=== PATIENT | male | born 1965 | race Caucasian/White ===

== ENCOUNTER 2016-08-16 02:36 | Emergency (ER) | payer BC ==
[~2016-08-16] VITALS: Ht 188 cm; Wt 106.6 kg
[~2016-08-16 02:36] MED LIST: LRT5 PO; OXYC1TAB3 PO
[2016-08-16 02:41] VITALS: TEMP 36.5; Ht 188 cm; Wt 106.6 kg
[2016-08-16] MEDS ORDERED: NITROGLYCERIN 0.4 MG SL PER TAB CHARGE SL STA (02:56)
[2016-08-16 03:02] VITALS: O2SAT 97
[2016-08-16 03:18] LABS: BASO % 0.5 %; BASO ABS # 0.03 K/uL (0-0.2); COMPLETE YES; EOS % 2.3 %; HEMATOCRIT 43.6 % (42-52); IG% 0.2 %; LYMPH % 33.2 %; LYMPH ABS # 1.86 K/uL (1.2-3.4); MEAN CELL VOLUME 88.6 fL (80-100); MEAN CORPUSCULAR HEMOGLOBIN 30.3 pg (25-34); MEAN CORPUSCULAR HGB CONC 34.2 g/dl (32-36); MONO % 12.5 %; NEUT % 51.3 %; PLATELET COUNT 250 K/uL (130-400); RED BLOOD COUNT 4.92 M/uL (4.7-6.1); WHITE BLOOD COUNT 5.61 K/uL (4.8-10.8)
[2016-08-16 03:35] LABS: BLOOD UREA NITROGEN 13 mg/dl (7-18); BUN/CREATININE RATIO 10.6 (10-20); CALCIUM 8.4 mg/dl (8.5-10.1); CARBON DIOXIDE 31 mmol/L (21-32); CHLORIDE 106 mmol/L (98-107); GLUCOSE 93 mg/dl (70-99); POTASSIUM 3.8 mmol/L (3.5-5.1); SODIUM 143 mmol/L (136-145)
[2016-08-16 03:40] LABS: CKMB/CK RATIO 1.2 (0-3.0)
[2016-08-16] MEDS ORDERED: METOPROLOL TARTRATE 50 MG TAB PO STA (04:05)
[2016-08-16] MEDS ORDERED: METO25TA56 PO (04:57)
--- NOTE | 2016-08-16 04:58 | EMERGENCY ROOM VISIT NOTE ---
History Report prepared by Isabel: Brittni Levi Under the Supervision of: Dr. Huy Farmer M.D. First contact with patient: 02:49 Chief Complaint: HYPERTENSION Stated Complaint: HIGH BP/CHEST PAIN History of Present Illness The patient is a 51 year old male who presents to the Emergency Room with complaints of intermittent chest pain with onset one week ago. He rates his pain as a 4/10 and describes the pain as a "pressure" in his central chest. The patient notes that he also has high blood pressure with this chest discomfort. For the symptoms, the patient took two baby aspirin one night ago. Along with his chest pain, the patient is also congested and has a cough. The patient has a significant history of cardiac disease. He denies taking daily medication, headaches, new neck pain, jaw pain, shortness of breath, falls, trauma, history of blood clots, family history of blood clots, recent travel. Source of History: patient Onset: one week ago Position: chest Quality: other (chest pressure) Timing: intermittent Modifying Factors (Relieving): other (aspirin) Associated Symptoms: + cough, No SOB, No headache, No neck pain Note: He denies jaw pain, falls, trauma. Review of Systems See HPI for pertinent positives & negatives. A total of 10 systems reviewed and were otherwise negative. Past Medical & Surgical Medical Problems: (1) Kidney stone Family History FHx: heart disease Hypertension Social History Smoking Status: Never Smoker Drug Use: none Marital Status: Housing Status: lives with family Current/Historical Medications Scheduled Metoprolol Tartrate (Lopressor) (Lopressor), 1 TAB PO BID Allergies Uncoded Allergies: DUST MITES (Allergy, Unknown, 08/31/02) Physical Exam Vital Signs Date Time Temp Pulse Resp B/P Pulse Ox O2 Delivery O2 Flow Rate FiO2 08/16/16 05:31 70 18 177/98 97 08/16/16 05:01 68 18 158/107 97 Room Air 08/16/16 04:14 73 18 176/98 97 Room Air 08/16/16 03:41 73 18 166/100 97 Room Air 08/16/16 03:14 83 18 156/102 97 Room Air 08/16/16 03:03 79 08/16/16 03:02 97 Room Air 08/16/16 03:02 76 18 175/102 97 Room Air 08/16/16 02:41 36.5 83 18 180/110 98 Room Air Physical Exam GENERAL: Patient is mildly anxious appearing and in no acute distress. HEENT: No acute trauma, normocephalic atraumatic, mucous membranes moist, no nasal congestion, no scleral icterus. NECK: No stridor, no adenopathy, no meningismus, trachea is midline. LUNGS: No dyspnea. Clear to auscultation and equal bilaterally. No wheeze, no rhonchi. HEART: Regular rate and rhythm. No murmurs, rubs, gallops appreciated. ABDOMEN: Soft, nontender, bowel sounds positive, no masses appreciated, no peritonitis. BACK: No midline tenderness, no CVA tenderness EXTREMITIES: Normal motion all extremities, no cyanosis, no edema. NEUROLOGIC: Alert and oriented, no acute motor or sensory deficits, no focal weakness, cranial nerves grossly intact. SKIN: No rash, no jaundice, no diaphoresis. Medical Decision & Procedures ER Provider Diagnostic Interpretation: X ray results are stated below per my interpretation: Chest: 1 view: No infiltrate, no effusion, normal cardiac border. Laboratory Results 08/16/16 03:00 Red Blood Count 4.92, Mean Corpuscular Volume 88.6, Mean Corpuscular Hemoglobin 30.3, Mean Corpuscular Hemoglobin Concent 34.2, Mean Platelet Volume 10.0, Neutrophils (%) (Auto) 51.3, Lymphocytes (%) (Auto) 33.2, Monocytes (%) (Auto) 12.5, Eosinophils (%) (Auto) 2.3, Basophils (%) (Auto) 0.5, Neutrophils # (Auto ) 2.88, Lymphocytes # (Auto) 1.86, Monocytes # (Auto) 0.70, Eosinophils # (Auto ) 0.13, Basophils # (Auto) 0.03 08/16/16 03:00 Test 08/16/16 03:00 08/16/16 04:57 White Blood Count 5.61 K/uL (4.8-10.8) Red Blood Count 4.92 M/uL (4.7-6.1) Hemoglobin 14.9 g/dL (14.0-18.0) Hematocrit 43.6 % (42-52) Mean Corpuscular Volume 88.6 fL (80-100) Mean Corpuscular Hemoglobin 30.3 pg (25-34) Mean Corpuscular Hemoglobin Concent 34.2 g/dl (32-36) Platelet Count 250 K/uL (130-400) Mean Platelet Volume 10.0 fL (7.4-10.4) Neutrophils (%) (Auto) 51.3 % Lymphocytes (%) (Auto) 33.2 % Monocytes (%) (Auto) 12.5 % Eosinophils (%) (Auto) 2.3 % Basophils (%) (Auto) 0.5 % Neutrophils # (Auto) 2.88 K/uL (1.4-6.5) Lymphocytes # (Auto) 1.86 K/uL (1.2-3.4) Monocytes # (Auto) 0.70 K/uL (0.11-0.59) Eosinophils # (Auto) 0.13 K/uL (0-0.5) Basophils # (Auto) 0.03 K/uL (0-0.2) RDW Standard Deviation 41.7 fL (36.4-46.3) RDW Coefficient of Variation 12.8 % (11.5-14.5) Immature Granulocyte % (Auto) 0.2 % Immature Granulocyte # (Auto) 0.01 K/uL (0.00-0.02) D-Dimer < 190 ug/L FEU (0-500) Anion Gap 6.0 mmol/L (3-11) Est Creatinine Clear Calc Drug Dose 94.7 ml/min Estimated GFR () 80.7 Estimated GFR (Non- 69.6 BUN/Creatinine Ratio 10.6 (10-20) Calcium Level 8.4 mg/dl (8.5-10.1) Total Creatine Kinase 81 U/L (39-308) Creatine Kinase MB 1.0 ng/ml (0.5-3.6) Creatine Kinase MB Ratio 1.2 (0-3.0) Troponin I < 0.015 ng/ml (0-0.045) Bedside Troponin I 0.010 ng/ml (0-0.045) Laboratory results as reviewed by me. Medications Administered Medications (Trade) Dose Ordered Sig/Katie Route Start Time Stop Time Status Last Admin Dose Admin Nitroglycerin (Nitrostat Tab) 0.4 mg PRN STAT SL 08/16/16 02:56 08/16/16 02:57 DC 1/29/17 03:08 0.4 MG Metoprolol Tartrate (Lopressor Tab) 25 mg NOW STAT PO 08/16/16 04:05 08/16/16 04:07 DC 08/16/16 04:15 25 MG ECG Indication: chest pain Rate (beats per minute): 76 Rhythm: normal sinus Findings: no acute ischemic change, no ectopy ED Course 0250: The patient was evaluated in room B9. A complete history and physical exam was performed. 0256: Nitrostat Tab 0.4 mg SL 0403: I reevaluated the patient; he is feeling fine. I discussed admission with the patient; he states that he cannot stay in the hospital as he has too much to do. 0405: Lopressor Tab 25 mg PO 0525: Reevaluated the patient. Discussed results and discharge instructions: He verbalized understanding and agreement. The patient is ready for discharge. Medical Decision Differential: Cardiac Ischemia (STEMI, NSTEMI, Unstable Angina, etc), Aortic Dissection, Arrhythmia, Pulmonary Embolism, Pneumonia, Pneumothorax, MSK, Infectious, Pericarditis/Myocarditis, Esophageal Rupture, Gastrointestinal, amongst other pathologies entertained. 51 yr old male arrives with complaint of hypertension. Admits some substernal chest discomfort which has been essentially continuous for last week without significant change other than he does not it seems worse with cough. This is in conjunction with runny nose and URI symptoms. His BP seems to be essential in nature with no previous medications for this. We will start on Metoprolol low dose as he tolerates this here in ER and will be able to take off if blood pressure normalizes with diet and exercise. EKG negative and trops are normal 2 hours apart. He has no change in symptoms with SLNTG thus I suspect chest discomfort is more MSK related. With normal CXR, normal dimer and description of pain I do not feel this is dissection nor PE. He is stable and in no distress. I made clear to him that brining in to hospital would be my advice but he notes that he needs to be discharged as busy morning ahead. He is aware risks of NE. he is aware he can return at any time. He will follow up with his PCP tomorrow to discuss further work-up and if Metoprolol or other meds should be used. Figured would go with metoprolol as HR adequate and may also have mild added benefit of helping with increased anxiety/stress recently and public speaking. Impression Primary Impression: Hypertension Additional Impression: Chest pain, mid sternal Scribe Attestation The scribe's documentation has been prepared under my direction and personally reviewed by me in its entirety. I confirm that the note above accurately reflects all work, treatment, procedures, and medical decision making performed by me. Departure Information Dispostion Home / Self-Care Prescriptions Metoprolol Tartrate (Lopressor) (Lopressor) 25 Mg Tab 1 TAB PO BID for 30 Days, #60 TAB 1 Refill Prov: Huy Farmer M.D. 08/16/16 Referrals Alf Wakefield M.D. (PCP) Patient Instructions ED Chest Pain Atypical Unkn Cause, ED Hypertension [place], [facility] Additional Instructions A single Emergency Department visit can not rule out cardiac disease. If you develop worsening pain, radiation of pain, difficulty breathing, passing out or other concerns return to ED immediately for further evaluation. You must call your primary care provider tomorrow for further evaluation. You have been started on a low dose of blood pressure medication. This can be increased with consultation with your primary care provider if need be. Please discuss using this med vs others with your primary provider. Problem Qualifiers Primary Impression: Hypertension Hypertension type: essential hypertension Qualified Codes: I10 - Essential ( primary) hypertension
[2016-08-16 05:31] VITALS: BP 177/98; PULSE 70; O2SAT 97
--- NOTE | 2016-08-16 08:07 | DIAGNOSTIC IMAGING REPORT ---
CHEST ONE VIEW PORTABLE HISTORY: Atypical Chest Pain COMPARISON: None. FINDINGS: The lungs are clear. Cardiac silhouette is normal in size. No pleural effusions. No pneumothorax. IMPRESSION: No acute process. Electronically signed by: Diego Cantu M.D. 08/16/2016 8:06 AM Dictated Date/Time: 08/16/2016 8:04 AM
[2016-12-03] MEDS ORDERED: JUICE PLUS PO (15:20)
[2016-12-03] MEDS ORDERED: PANT40TA PO (15:20)
[2016-12-04] MEDS ORDERED: HYDR-3419 PO (10:19)
== END 2016-08-16 05:32 | disposition home or self-care (01) ==
LOC: C.EDB 02:37
DX: I10 Essential (primary) hypertension (principal); R07.2 Precordial pain; Z82.49 Family history of ischemic heart disease and other diseases of the circulatory system

== ENCOUNTER 2016-10-27 08:18 | Emergency (ER) | payer BC ==
[~2016-10-27] VITALS: Ht 188 cm; Wt 99.5 kg
[~2016-10-27 08:18] MED LIST changes: -LRT5 PO; +METO25TA56 PO; -OXYC1TAB3 PO
[2016-10-27 08:22] VITALS: TEMP 36.7; Ht 188 cm; Wt 99.5 kg
[2016-10-27] MEDS ORDERED: ONDANSETRON INJ 2 MG/ML 2 ML VIAL IV STA (08:31)
[2016-10-27] MEDS ORDERED: HYDROmorphone INJ 1 MG/ML SYR IV STA (08:31)
[2016-10-27] MEDS ORDERED: LISI20TA3 PO (08:42)
[2016-10-27] MEDS ORDERED: METO25TA56 PO (08:42)
[2016-10-27 08:47] LABS: BASO % 0.1 %; BASO ABS # 0.01 K/uL (0-0.2); COMPLETE YES; EOS % 1.3 %; HEMATOCRIT 43.6 % (42-52); IG% 0.3 %; LYMPH % 32.1 %; LYMPH ABS # 2.21 K/uL (1.2-3.4); MEAN CORPUSCULAR HEMOGLOBIN 29.3 pg (25-34); MEAN CORPUSCULAR HGB CONC 33.7 g/dl (32-36); MEAN PLATELET VOLUME 9.8 fL (7.4-10.4); MONO % 8.3 %; NEUT % 57.9 %; PLATELET COUNT 287 K/uL (130-400); RED BLOOD COUNT 5.01 M/uL (4.7-6.1); WHITE BLOOD COUNT 6.89 K/uL (4.8-10.8)
[2016-10-27] MEDS ORDERED: SODIUM CHLORIDE 0.9% 1000ML 1,000 ML IV STA (08:50)
[2016-10-27 09:04] LABS: BUN/CREATININE RATIO 15.3 (10-20); CALCIUM 8.7 mg/dl (8.5-10.1); CREATININE 1.2 mg/dl (0.60-1.40); POTASSIUM 3.9 mmol/L (3.5-5.1)
--- NOTE | 2016-10-27 09:16 | DIAGNOSTIC IMAGING REPORT ---
ABDOMEN AND PELVIS CT WITHOUT CONTRAST CT DOSE: 983.40 mGycm HISTORY: Flank pain L flank pain 45 min ago TECHNIQUE: Multiaxial CT images of the abdomen and pelvis were performed without contrast. COMPARISON STUDY: None. FINDINGS: Minimal dependent bibasilar atelectasis. Several hypodensities within the liver suggesting small cysts on a statistical basis. Gallbladder is negative for distention. Spleen is uniform. The adrenal glands are unremarkable. Right kidney is negative for hydronephrosis. Mild left hydronephrosis. Obstructing calculus measuring 4 mm proximal left ureter. Distal ureters are unremarkable. Bowel pattern is considered nonobstructive. Bladder is midline. There are several prostate calcifications. IMPRESSION: 1. 4 mm obstructing calculus proximal left ureter. 2. Mild left hydroureteronephrosis. Electronically signed by: Mark Pelayo M.D. 10/27/2016 9:15 AM Dictated Date/Time: 10/27/2016 9:12 AM
[2016-10-27 09:53] LABS: URINE APPEARANCE CLOUDY (CLEAR); URINE BILIRUBIN NEG (NEG); URINE COLOR DK YELLOW; URINE NITRITE NEG (NEG); URINE SPECIFIC GRAVITY 1.024 (1.000-1.030); UROBILINOGEN NEG (NEG); ZZUR CULT IF INDIC CLEAN CATCH NO
[2016-10-27 09:58] LABS: MANUAL MICROSCOPIC REQUIRED? NO; REVIEW REQ? NO
[2016-10-27] MEDS ORDERED: OXYC1TAB3 PO (10:14)
[2016-10-27] MEDS ORDERED: TAMS0.4C38 PO (10:14)
[2016-10-27 10:15] VITALS: BP 173/104; PULSE 56; O2SAT 98
--- NOTE | 2016-10-27 14:06 | EMERGENCY ROOM VISIT NOTE ---
History Report prepared by Isabel: Giovanna Mueller Under the Supervision of: Dr. Boyd Haney D.O. First contact with patient: 08:24 Chief Complaint: FLANK PAIN Stated Complaint: LEFT SIDE PAIN/KIDNEY STONE History of Present Illness The patient is a 51 year old male who presents to the Emergency Room with complaints of persistent left sided flank pain starting 45 minutes ago. The patient has had 4 kidney stones before and states that the current symptoms are similar to his previous kidney stones. He describes the pain as severe and sharp. Initially started in his epigastric region with nausea and migrated to his left flank. The pain sometimes worsens with movement. He reports nausea. He denies any dysuria, headache, chest pain, or SOB. He follows with urology and has been on a specialized diet for the past 2 years. He has a history of hypertension. Source of History: patient Onset: 45 minutes ago Position: other (left flank) Quality: other (like previous kidney stones) Timing: other (persistent) Modifying Factors (Worsening): movement Associated Symptoms: + nausea, No SOB, No chest pain, No headache, No urinary symptoms Review of Systems See HPI for pertinent positives & negatives. A total of 10 systems reviewed and were otherwise negative. Past Medical & Surgical Medical Problems: (1) Kidney stone Family History FHx: heart disease Hypertension Social History Smoking Status: Never Smoker Drug Use: none Marital Status: Housing Status: lives with family Occupation Status: employed Current/Historical Medications Scheduled Lisinopril (Prinivil), 20 MG PO DAILY Metoprolol Tartrate (Lopressor) (Lopressor), 25 MG PO BID Tamsulosin Hcl (Flomax), 0.4 MG PO DAILY Scheduled PRN Oxycodone Immediate Rel Tab (Roxicodone Ir), 1-2 TAB PO Q4H PRN for Severe Pain Allergies Uncoded Allergies: DUST MITES (Allergy, Unknown, 08/31/02) Physical Exam Vital Signs Date Time Temp Pulse Resp B/P Pulse Ox O2 Delivery O2 Flow Rate FiO2 10/27/16 10:15 56 18 173/104 98 Room Air 10/27/16 08:22 36.7 59 18 193/108 98 Room Air Physical Exam GENERAL: sitting up in bed, in moderate distress, holding left flank EYE EXAM: normal conjunctiva OROPHARYNX: no exudate, no erythema, lips, buccal mucosa, and tongue normal and mucous membranes are moist NECK: supple, no nuchal rigidity, no adenopathy, non-tender LUNGS: Clear to auscultation. Normal chest wall mechanics HEART: no murmurs, S1 normal and S2 normal ABDOMEN: abdomen soft, non-tender, normo-active bowel sounds, no masses, no rebound or guarding. BACK: Back is symmetrical on inspection and there is no deformity, no midline tenderness, no CVA tenderness. SKIN: no rashes and no bruising UPPER EXTREMITIES: upper extremities are grossly normal. LOWER EXTREMITIES: No pitting edema. NEURO EXAM: Normal sensorium, cranial nerves II-XII grossly intact, normal speech, no gross weakness of arms, no gross weakness of legs. Medical Decision & Procedures ER Provider Diagnostic Interpretation: Radiology results as stated below per my review and the radiologist's interpretation: ABDOMEN AND PELVIS CT WITHOUT CONTRAST CT DOSE: 983.40 mGycm HISTORY: Flank pain L flank pain 45 min ago TECHNIQUE: Multiaxial CT images of the abdomen and pelvis were performed without contrast. COMPARISON STUDY: None. FINDINGS: Minimal dependent bibasilar atelectasis. Several hypodensities within the liver suggesting small cysts on a statistical basis. Gallbladder is negative for distention. Spleen is uniform. The adrenal glands are unremarkable. Right kidney is negative for hydronephrosis. Mild left hydronephrosis. Obstructing calculus measuring 4 mm proximal left ureter. Distal ureters are unremarkable. Bowel pattern is considered nonobstructive. Bladder is midline. There are several prostate calcifications. IMPRESSION: 1. 4 mm obstructing calculus proximal left ureter. 2. Mild left hydroureteronephrosis. Electronically signed by: Mark Pelayo M.D. 10/27/2016 9:15 AM Dictated Date/Time: 10/27/2016 9:12 AM Laboratory Results 10/27/16 08:40 Red Blood Count 5.01, Mean Corpuscular Volume 87.0, Mean Corpuscular Hemoglobin 29.3, Mean Corpuscular Hemoglobin Concent 33.7, Mean Platelet Volume 9.8, Neutrophils (%) (Auto) 57.9, Lymphocytes (%) (Auto) 32.1, Monocytes (%) (Auto) 8.3, Eosinophils (%) (Auto) 1.3, Basophils (%) (Auto) 0.1, Neutrophils # (Auto) 3.99, Lymphocytes # (Auto) 2.21, Monocytes # (Auto) 0.57, Eosinophils # (Auto) 0.09, Basophils # (Auto) 0.01 10/27/16 08:40 Test 10/27/16 08:40 10/27/16 09:35 White Blood Count 6.89 K/uL (4.8-10.8) Red Blood Count 5.01 M/uL (4.7-6.1) Hemoglobin 14.7 g/dL (14.0-18.0) Hematocrit 43.6 % (42-52) Mean Corpuscular Volume 87.0 fL (80-100) Mean Corpuscular Hemoglobin 29.3 pg (25-34) Mean Corpuscular Hemoglobin Concent 33.7 g/dl (32-36) Platelet Count 287 K/uL (130-400) Mean Platelet Volume 9.8 fL (7.4-10.4) Neutrophils (%) (Auto) 57.9 % Lymphocytes (%) (Auto) 32.1 % Monocytes (%) (Auto) 8.3 % Eosinophils (%) (Auto) 1.3 % Basophils (%) (Auto) 0.1 % Neutrophils # (Auto) 3.99 K/uL (1.4-6.5) Lymphocytes # (Auto) 2.21 K/uL (1.2-3.4) Monocytes # (Auto) 0.57 K/uL (0.11-0.59) Eosinophils # (Auto) 0.09 K/uL (0-0.5) Basophils # (Auto) 0.01 K/uL (0-0.2) RDW Standard Deviation 42.7 fL (36.4-46.3) RDW Coefficient of Variation 13.4 % (11.5-14.5) Immature Granulocyte % (Auto) 0.3 % Immature Granulocyte # (Auto) 0.02 K/uL (0.00-0.02) Anion Gap 6.0 mmol/L (3-11) Est Creatinine Clear Calc Drug Dose 91.8 ml/min Estimated GFR () 80.7 Estimated GFR (Non- 69.6 BUN/Creatinine Ratio 15.3 (10-20) Calcium Level 8.7 mg/dl (8.5-10.1) Total Bilirubin 0.6 mg/dl (0.2-1) Direct Bilirubin 0.1 mg/dl (0-0.2) Aspartate Amino Transf (AST/SGOT) 14 U/L (15-37) Alanine Aminotransferase (ALT/SGPT) 27 U/L (12-78) Alkaline Phosphatase 44 U/L (45-117) Total Protein 7.1 gm/dl (6.4-8.2) Albumin 3.9 gm/dl (3.4-5.0) Lipase 175 U/L (73-393) Urine Color DK YELLOW Urine Appearance CLOUDY (CLEAR) Urine pH 6.0 (4.5-7.5) Urine Specific [place] 1.024 (1.000-1.030) Urine Protein TRACE (NEG) Urine Glucose (UA) NEG (NEG) Urine Ketones TRACE (NEG) Urine Occult Blood 3+ (NEG) Urine Nitrite NEG (NEG) Urine Bilirubin NEG (NEG) Urine Urobilinogen NEG (NEG) Urine Leukocyte Esterase NEG (NEG) Urine WBC (Auto) 1-5 /hpf (0-5) Urine RBC (Auto) >30 /hpf (0-4) Urine Hyaline Casts (Auto) 1-5 /lpf (0-5) Urine Epithelial Cells (Auto) 5-10 /lpf (0-5) Urine Bacteria (Auto) NEG (NEG) Laboratory results per my review. Medications Administered Medications (Trade) Dose Ordered Sig/Katie Route Start Time Stop Time Status Last Admin Dose Admin Hydromorphone HCl (Dilaudid Inj) 1 mg NOW STAT IV 10/27/16 08:31 10/27/16 08:33 DC 10/27/16 08:48 1 MG Ondansetron HCl 4 mg 4 mg NOW STAT IV 10/27/16 08:31 10/27/16 08:33 DC 10/27/16 08:46 4 MG Sodium Chloride (Nss 1000ml) 1,000 ml @ 999 mls/hr Q1H1M STAT IV 10/27/16 08:50 10/27/16 09:50 DC 10/27/16 08:50 999 MLS/HR ED Course ED COURSE: Vital signs were reviewed and showed hypertension and bradycardia. The patients medical record was reviewed The above diagnostic studies were performed and reviewed. ED treatments and interventions as stated above. 0825: The patient was evaluated in room B7. A complete history and physical examination was performed. 0831: Zofran Inj 4 mg IV, Dilaudid Inj 1 mg IV. 0850: NSS 1000 ml @ 999 mls/hr IV. 0922: I reevaluated the patient. He is feeling better. He is producing a urine sample. 1013: Upon reevaluation, the patient is doing better. I discussed my findings with the patient and he understands and agrees with the treatment plan. Based on the patients age, coexisting illnesses, exam and lab findings the decision to treat as an outpatient was made. The patient remained stable while under my care. The patient appeared well at the time of discharge. Medical Decision Differential diagnoses includes but is not limited to gastritis, peptic ulcer disease, GERD, gallbladder disease, pancreatitis, small bowel obstruction, acute coronary syndrome, pericarditis, ischemic bowel, irritable bowel disease, irritable bowel syndrome, appendicitis, diverticulitis, malignancy, hernia, urinary tract infection, torsion, , perforation, trauma, infectious. Patient is a 51-year-old male who presents the ER for severe left flank pain that feels exactly like his previous kidney stones. He was initially hypertensive. Labs including CBC, BMP, LFTs, and lipase were unremarkable. UA has blood but no signs of infection. CT shows a 4 mm proximal stone. Patient was given IV fluids along with Dilaudid and Zofran. He had significant improvement of his pain. He was discharged instructed not drive. He is given a prescription for Flomax, a strainer, and OxyIR. Discussed with Pt concerning signs and symptoms to watch out for. Pt was instructed to follow up with their PCP and discussed with the patient their option to return to the ED at anytime for persistent or worsening symptoms. The appropriate anticipatory guidance and out-patient management, including indications for return to the emergency department, were explained at length to the patient and understood. Impression Primary Impression: Renal colic Scribe Attestation The scribe's documentation has been prepared under my direction and personally reviewed by me in its entirety. I confirm that the note above accurately reflects all work, treatment, procedures, and medical decision making performed by me. Departure Information Dispostion Home / Self-Care Prescriptions Oxycodone Immediate Rel Tab (ROXICODONE IR) 5 Mg Tab 1-2 TAB PO Q4H Y for Severe Pain, #24 TAB Prov: Boyd Haney, DO 10/27/16 Tamsulosin Hcl (FLOMAX) 0.4 Mg Cap 0.4 MG PO DAILY, #10 CAP Prov: Boyd Haney, DO 10/27/16 Referrals Alf Wakefield M.D. (PCP) Warner Ackerman M.D. Forms HOME CARE DOCUMENTATION FORM, IMPORTANT VISIT INFORMATION Patient Instructions Kidney Stones - [facility], My [facility] Additional Instructions Please follow up with your primary care doctor with in the next 24 hours. Any worsening of your symptoms, please return to the ED immediately. This includes fevers greater than 100.4, persistent nausea vomiting, worsening the pain, unable to peak, or any other concerning signs or symptoms from your standpoint. You were given medications during this visit that will inhibit your ability to drive, operate machinery and work. Please do NOT drive, operate machinery or work for the next 12hrs. You were also given a prescription for a narcotic/ OxyIR. While taking this medication you should also not drive, operate machinery and or work. Please follow up with urology within the next 1-2 weeks. Their numbers listed below.
[2016-12-03] MEDS ORDERED: PANT40TA PO (15:20)
[2016-12-03] MEDS ORDERED: JUICE PLUS PO (15:20)
[2016-12-04] MEDS ORDERED: HYDR-3419 PO (10:19)
== END 2016-10-27 10:34 | disposition home or self-care (01) ==
LOC: C.EDB 08:19
DX: N23 Unspecified renal colic (principal); Z87.442 Personal history of urinary calculi; Z82.49 Family history of ischemic heart disease and other diseases of the circulatory system; Z79.899 Other long term (current) drug therapy

== ENCOUNTER → 2016-11-02 | Outpatient (CLI) | payer BC ==
[~2016-11-02] MED LIST changes: +HYDR-3419 PO; +JUICE PLUS PO; +LISI20TA3 PO; +OXYC1TAB3 PO; +PANT40TA PO; +TAMS0.4C38 PO
--- NOTE | 2016-11-02 10:20 | DIAGNOSTIC IMAGING REPORT ---
KUB HISTORY: N20.0 [id number] COMPARISON: Abdomen and pelvis CT 10/27/2016. FINDINGS: No evidence for bowel obstruction. Moderate to large amount well-formed stool seen throughout the colon. This obscures the renal shadows. No renal calculi. No change in the 7 mm stone within the proximal left ureter. This is adjacent to the left L3 transverse process No pneumoperitoneum or pneumatosis. IMPRESSION: 1. No change in the 7 mm proximal left ureteral stone. 2. No renal calculi. Electronically signed by: Diego Cantu M.D. 11/02/2016 10:18 AM Dictated Date/Time: 11/02/2016 10:16 AM
== END ==
LOC: C.RADBC 09:54
PROVIDERS: ATTEND Nurse Practitioner Family
DX: N20.0 Calculus of kidney (principal)

== ENCOUNTER → 2016-12-02 | Outpatient (CLI) | payer BC ==
[~2016-12-02] MED LIST changes: -TAMS0.4C38 PO
--- NOTE | 2016-12-02 09:14 | DIAGNOSTIC IMAGING REPORT ---
KUB HISTORY: N20.0 [id number] Ureteral [id number] COMPARISON: KUB 11/02/2016. FINDINGS: The bowel gas pattern is unremarkable. There are no dilated loops of small bowel to suggest an obstruction. No renal calculi. No change in the 7 mm proximal left ureteral stone adjacent to the left L3 transverse process. No pneumoperitoneum or pneumatosis. Of note, the renal shadows are partially obscured by overlying bowel. IMPRESSION: No change in the 7 mm proximal left ureteral stone. Electronically signed by: Diego Cantu M.D. 12/02/2016 9:12 AM Dictated Date/Time: 12/02/2016 9:08 AM
[2016-12-02 14:53] LABS: BASO % 0.5 %; BASO ABS # 0.03 K/uL (0-0.2); COMPLETE YES; EOS % 0.6 %; IG% 0.2 %; LYMPH % 35.4 %; LYMPH ABS # 2.28 K/uL (1.2-3.4); MEAN CELL VOLUME 89.4 fL (80-100); MEAN CORPUSCULAR HEMOGLOBIN 29.7 pg (25-34); MEAN CORPUSCULAR HGB CONC 33.2 g/dl (32-36); MEAN PLATELET VOLUME 10.2 fL (7.4-10.4); MONO % 6.5 %; NEUT % 56.8 %; PLATELET COUNT 280 K/uL (130-400); RED BLOOD COUNT 4.92 M/uL (4.7-6.1); WHITE BLOOD COUNT 6.44 K/uL (4.8-10.8)
[2016-12-02 15:04] LABS: URINE APPEARANCE CLEAR (CLEAR); URINE BILIRUBIN NEG (NEG); URINE COLOR YELLOW; URINE NITRITE NEG (NEG); URINE SPECIFIC GRAVITY 1.012 (1.000-1.030); UROBILINOGEN NEG (NEG)
[2016-12-02 15:09] LABS: MANUAL MICROSCOPIC REQUIRED? NO; REVIEW REQ? NO
[2016-12-02 15:42] LABS: BLOOD UREA NITROGEN 17 mg/dl (7-18); BUN/CREATININE RATIO 15.7 (10-20); CALCIUM 8.8 mg/dl (8.5-10.1); CARBON DIOXIDE 32 mmol/L (21-32); CHLORIDE 103 mmol/L (98-107); GLUCOSE 92 mg/dl (70-99); POTASSIUM 3.8 mmol/L (3.5-5.1); SODIUM 140 mmol/L (136-145)
== END | disposition home or self-care (01) ==
LOC: C.RADBC 08:46
PROVIDERS: ATTEND Nurse Practitioner Family
DX: N20.0 Calculus of kidney (principal); N20.1 Calculus of ureter

== ENCOUNTER → 2016-12-04 | Day surgery (SDC) | payer BC ==
[2016-12-03 15:21] VITALS: Ht 188 cm; Wt 97.7 kg
[~2016-12-04] VITALS: Ht 188 cm; Wt 97.7 kg
[~2016-12-04] MED LIST changes: +ATROPINE SULFATE 0.1 MG/ML 5ML SYR IV PRN; +CIPROFLOXACIN 400MG / D5W IV SCH; +DEXAMETHASONE SOD INJ 4 MG/ML VIAL IV PRN; +DEXAMETHASONE SOD INJ 4 MG/ML VIAL ONE; +EpHEDrine SULFATE INJ 50 MG/ML AMP IV PRN; +FENTANYL CITRATE INJ 50 MCG/1 ML 2 ML VIAL IV PRN; +FENTANYL CITRATE INJ 50 MCG/1 ML 2 ML VIAL ONE; +KETOROLAC TROMETHAMINE 30 MG/ML VIAL IV. PRN; +LABETALOL HCL IV 5 MG/ML 20ML IV PRN; +LACTATED RINGER'S 1000ML 1,000 ML IV SCH; +LIDOCAINE HCL 2% 2 ML VIAL (20MG/ML) ONE; +METOCLOPRAMIDE HCL INJ 5 MG/ML 2 ML VIAL IV PRN; +MIDAZOLAM HCL 1 MG/ML 2ML VIAL ONE; +MoRPHine SULFATE 10 MG/ML CARP/VIAL IV PRN; +NURSING VERBAL MED ORDER ONE; +ONDANSETRON INJ 2 MG/ML 2 ML VIAL IV PRN; +ONDANSETRON INJ 2 MG/ML 2 ML VIAL ONE; -OXYC1TAB3 PO; +OXYCODONE/ACETAMINOPHEN 5-325 TAB PO STA; +PHENYLEPHRINE 100MCG/ML 5ML SYR IV PRN; +PROPOFOL IV EMULSION 10 MG/ML 20 ML VIAL IV ONE; +SUCCINYLCHOLINE CHLORIDE 20 MG/ML 10 ML VIAL IV ONE
--- NOTE | 2016-12-04 09:44 | History & Physical Bridge - [place] ---
H&P Re-Evaluation Bridge Note: I have examined the patient, reviewed the History & Physical and in the interval since the performance of the History & Physical I have noted the following changes of clinical significance: No changes noted
--- NOTE | 2016-12-04 10:25 | Discharge Instructions-SurgCtr ---
Discharge Instructions Date of Service December 04, 2016. Visit Reason for Visit: Stones Discharge Discharge Diagnosis / Problem: r ureteral stone Discharge Goals Goal(s): Decrease discomfort, Increase independence, Improve disease control Activity Recommendations Activity Limitations: per Instructions/Follow-up section Anesthesia . Post Anesthesia Instructions: If you have had General Anesthesia or IV Sedation: * Do not drive today. * Resume driving when surgeon permits. * Do not make important decisions or sign legal documents today. * Call surgeon for: 1. Temperature elevations greater than 101 degrees F. 2. Uncontrollable pain. 3. Excessive bleeding. 4. Persistent nausea and vomiting. 5. Medication intolerance (nausea, vomiting or rash). * For nausea and vomiting use only clear liquids such as: tea, soda, bouillon until nausea subsides, then gradually increase diet as tolerated. * If you have any concerns or questions, call your surgeon's office. If physician is unavailable and it is an emergency, call 911 or go to the nearest emergency room. . Diet Recommendations Home Diet: resume previous diet Procedures Procedures Performed: Left Extracorporeal Shock Wave Lithotripsy - Ureteral Pending Studies Studies pending at discharge: no Medical Emergencies . Who to Call and When: Medical Emergencies: If at any time you feel your situation is an emergency, please call 911 immediately. . Non-Emergent Contact Non-Emergency issues call your: Urologist . . "Provider Documentation" section prepared by Nate Norwood. .
[2016-12-04 11:33] VITALS: TEMP 36.4
[2016-12-04 11:54] VITALS: BP 173/105; PULSE 57; O2SAT 98
--- NOTE | 2016-12-04 11:56 | OPERATIVE REPORT ---
DATE OF OPERATION: 12/04/2016 PREOPERATIVE DIAGNOSIS: Left ureteral stone. POSTOPERATIVE DIAGNOSIS: Same. PROCEDURE: Left ureteral ESWL. SURGEON: Dr. Norwood. ANESTHESIA: General. INDICATIONS: The patient is a 51-year-old male with a left ureteral stone that has been there for some period of time. He presents now for an attempt at definitive treatment with left ESWL. DESCRIPTION OF THE PROCEDURE: The patient was taken to the operating room after Venodyne stockings were placed and he had preoperative antibiotics, general anesthesia was administered. The stone was localized in 2 views and he received 3000 shocks approximately 1000 at level 6, the rest at lower levels including level 5. The patient tolerated the procedure well and was transferred to the recovery room in stable condition. I attest to the content of the Intraoperative Record and any orders documented therein. Any exceptio ns are noted below.
--- NOTE | 2016-12-04 11:59 | Anesthesia Progress Nt - [facility] ---
Anesthesia Post Op Note Date & Time December 04, 2016 at 11:58 Vital Signs Pain Intensity: 7 Vital Signs Past 12 Hours Date Time Temp Pulse Resp B/P Pulse Ox O2 Delivery O2 Flow Rate FiO2 12/04/16 11:54 57 18 173/105 98 Room Air 12/04/16 11:43 160/99 12/04/16 11:33 36.4 60 18 183/107 99 Room Air 12/04/16 11:23 36.6 57 14 160/97 99 Room Air 12/04/16 11:22 60 17 12/04/16 11:22 61 17 98 12/04/16 11:21 160/97 12/04/16 11:17 60 10 97 12/04/16 11:17 60 10 12/04/16 11:16 155/102 12/04/16 11:12 62 10 12/04/16 11:12 62 10 98 12/04/16 11:11 160/101 12/04/16 11:07 67 12 12/04/16 11:07 67 12 97 12/04/16 11:06 163/104 12/04/16 11:02 71 18 12/04/16 11:02 70 18 99 12/04/16 11:01 143/105 12/04/16 10:57 75 20 12/04/16 10:57 77 20 99 12/04/16 10:56 153/105 12/04/16 10:52 71 11 100 12/04/16 10:52 71 11 12/04/16 10:51 152/102 12/04/16 10:47 71 13 100 12/04/16 10:47 72 13 12/04/16 10:46 158/100 12/04/16 10:43 176/105 12/04/16 10:42 36.3 79 16 176/105 100 Mask 12/04/16 09:06 36.8 70 16 153/89 98 Room Air Notes Mental Status: alert / awake / arousable, participated in evaluation Pt Amnestic to Procedure: Yes Nausea / Vomiting: adequately controlled Pain: adequately controlled Airway Patency, RR, SpO2: stable & adequate BP & HR: stable & adequate Hydration State: stable & adequate Anesthetic Complications: no major complications apparent
== END | disposition home or self-care (01) ==
LOC: X.SURG 08:39
PROVIDERS: ATTEND Urology
DX: N20.1 Calculus of ureter (principal); N20.0 Calculus of kidney; I10 Essential (primary) hypertension; Z87.442 Personal history of urinary calculi; Z86.79 Personal history of other diseases of the circulatory system; Z98.890 Other specified postprocedural states

== ENCOUNTER → 2016-12-17 | Outpatient (CLI) | payer BC ==
[~2016-12-17] MED LIST changes: -ATROPINE SULFATE 0.1 MG/ML 5ML SYR IV PRN; -CIPROFLOXACIN 400MG / D5W IV SCH; -DEXAMETHASONE SOD INJ 4 MG/ML VIAL IV PRN; -DEXAMETHASONE SOD INJ 4 MG/ML VIAL ONE; -EpHEDrine SULFATE INJ 50 MG/ML AMP IV PRN; -FENTANYL CITRATE INJ 50 MCG/1 ML 2 ML VIAL IV PRN; -FENTANYL CITRATE INJ 50 MCG/1 ML 2 ML VIAL ONE; -KETOROLAC TROMETHAMINE 30 MG/ML VIAL IV. PRN; -LABETALOL HCL IV 5 MG/ML 20ML IV PRN; -LACTATED RINGER'S 1000ML 1,000 ML IV SCH; -LIDOCAINE HCL 2% 2 ML VIAL (20MG/ML) ONE; -METOCLOPRAMIDE HCL INJ 5 MG/ML 2 ML VIAL IV PRN; -MIDAZOLAM HCL 1 MG/ML 2ML VIAL ONE; -MoRPHine SULFATE 10 MG/ML CARP/VIAL IV PRN; -NURSING VERBAL MED ORDER ONE; -ONDANSETRON INJ 2 MG/ML 2 ML VIAL IV PRN; -ONDANSETRON INJ 2 MG/ML 2 ML VIAL ONE; -OXYCODONE/ACETAMINOPHEN 5-325 TAB PO STA; -PHENYLEPHRINE 100MCG/ML 5ML SYR IV PRN; -PROPOFOL IV EMULSION 10 MG/ML 20 ML VIAL IV ONE; -SUCCINYLCHOLINE CHLORIDE 20 MG/ML 10 ML VIAL IV ONE
== END | disposition home or self-care (01) ==
LOC: C.LABSPEC 17:08
PROVIDERS: ATTEND Nurse Practitioner Family
DX: N20.1 Calculus of ureter (principal)

== ENCOUNTER → 2016-12-17 | Outpatient (CLI) | payer BC ==
--- NOTE | 2016-12-17 11:45 | DIAGNOSTIC IMAGING REPORT ---
KUB CLINICAL HISTORY: Nephrolithiasis. COMPARISON STUDY: KUB December 02, [address] of the abdomen and pelvis October 27, 2016. FINDINGS: The bowel gas pattern is normal. The left ureteral calculus shown on KUB of December 02, 2016 is not visualized. No urinary calculi are identified. IMPRESSION: No urinary calculi identified. The 7 mm left ureteral calculus shown on exam of December 02, 2016 is not visualized. Electronically signed by: Ned Case M.D. 12/17/2016 11:44 AM Dictated Date/Time: 12/17/2016 11:42 AM
== END | disposition home or self-care (01) ==
LOC: C.RADBC 11:16
PROVIDERS: ATTEND Nurse Practitioner Family
DX: N20.0 Calculus of kidney (principal)

== ENCOUNTER → 2016-12-28 | Outpatient (CLI) | payer BC ==
--- NOTE | 2016-12-28 12:28 | DIAGNOSTIC IMAGING REPORT ---
L-SPINE MIN 4 VIEWS ROUTINE CLINICAL HISTORY: CHRONIC LOW BACK PAIN COMPARISON STUDY: No previous studies for comparison. FINDINGS: There are minor multilevel degenerative changes. No fractures or subluxations are visualized. There are no erosive or destructive changes. IMPRESSION: Minor degenerative change. No evidence of fracture. No destructive lesions are visualized. Electronically signed by: Tariq Shultz M.D. 12/28/2016 12:27 PM Dictated Date/Time: 12/28/2016 12:27 PM
== END | disposition home or self-care (01) ==
LOC: C.RAD1850 11:27
PROVIDERS: ATTEND Family Medicine
DX: M54.5 Low back pain (principal)